=== PATIENT | female | born 1965 | race African-American/Black ===

== ENCOUNTER 2019-11-05 08:55 | Outpatient (CLI) | payer BC | END 2019-11-05 23:30 | disposition home or self-care (01) | LOC: LAB 08:55 | DX: N39.0 Urinary tract infection, site not specified (principal) | CPT/HCPCS: 81000; 87088 ==

== ENCOUNTER 2020-02-09 14:17 | Outpatient (CLI) | payer BC, OTHER | END 2020-02-09 21:34 | disposition home or self-care (01) | LOC: LAB 14:17 | DX: Z20.828 Contact with and (suspected) exposure to other viral communicable diseases (principal) | CPT/HCPCS: 87635; G2023; U00003 ==

== ENCOUNTER 2020-05-10 08:10 | Outpatient (CLI) | payer BC ==
[2020-05-10 08:59] LABS: POTASSIUM 3.6 mmol/L (3.6-5.2)
[2020-05-10 09:59] LABS: PLATELET COUNT 516 K/uL (152-353)
== END 2020-05-10 22:42 | disposition home or self-care (01) ==
LOC: LABW 08:10
PROVIDERS: Family Medicine
DX: R53.83 Other fatigue (principal); K21.9 Gastro-esophageal reflux disease without esophagitis; D68.59 Other primary thrombophilia; M25.50 Pain in unspecified joint; E03.9 Hypothyroidism, unspecified; R79.89 Other specified abnormal findings of blood chemistry; N39.0 Urinary tract infection, site not specified; E55.9 Vitamin D deficiency, unspecified
CPT/HCPCS: 36415; 80053; 80061; 81000; 82306; 84403; 84439; 84443; 85027

== ENCOUNTER 2020-10-09 15:00 | Outpatient (CLI) | payer BC, OTHER | END 2020-10-09 16:00 | disposition home or self-care (01) | LOC: INF 15:00 | PROVIDERS: ATTEND Internal Medicine | DX: Z23 Encounter for immunization (principal) | CPT/HCPCS: 96372 ==

== ENCOUNTER 2020-11-02 12:17 | Outpatient (CLI) | payer BC, OTHER | END 2020-11-02 23:59 | disposition home or self-care (01) | LOC: INF 12:17 | PROVIDERS: ATTEND Internal Medicine | DX: Z23 Encounter for immunization (principal) | CPT/HCPCS: 96372 ==

== ENCOUNTER 2021-03-20 08:05 | Outpatient (CLI) | payer BC | END 2021-03-20 21:18 | disposition home or self-care (01) | LOC: US 08:05 | PROVIDERS: ATTEND Family Medicine | DX: M25.521 Pain in right elbow (principal); M77.01 Medial epicondylitis, right elbow; S56.512A Strain of other extensor muscle, fascia and tendon at forearm level, left arm, initial encounter; M54.2 Cervicalgia; M54.12 Radiculopathy, cervical region; R79.89 Other specified abnormal findings of blood chemistry ==